=== PATIENT | female | born 1960 | race American Indian/Alaskan Native ===

== ENCOUNTER 2020-11-04 09:22 | Outpatient (CLI) | payer BC ==
--- NOTE | 2020-11-04 13:10 | Fluoroscopy Report ---
Barium swallow Indication: FUNCTIONAL DYSPEPSIA. Technique: Single and double contrast barium technique utilized to evaluate the esophagus. Findings: To begin the exam, swallowing was evaluated in the lateral position under direct fluorosco py. Swallowing was normal. No mucosal irregularity, mass, mass effect, or critical stenosis. There were no abnormal tertiary c ontractions as seen with dysmotility. No gastroesophageal reflux. Impression: Unremarkable exam. Fluoroscopic time: 0.5 minutes Number of fluoroscopic images: 11 Signer Name: Seth Joseph MD Signed: 11/04/2020 1:05 PM Workstation Name: [id number]
--- NOTE | 2020-11-05 10:38 | Electrocardiograph Report ---
[facility] Test Date: 2020-11-04 Test Time: 10:58:26 Pat Name: CEDRICK HOPKINS Department: Room: Gender: F Gas B[employer]: YANIQUE : 1960 Requested By: ANDREZ EMANUEL Order Number: [id number] Reading MD: Brandin Quan Measurements Intervals Pharr Rate: 60 P: 27 NM: 166 QRS: -11 QRSD: 92 T: 48 QT: 463 QTc: 463 Interpretive Statements Sinus rhythm No previous ECG available for comparison Electronically Signed On 11-05-2020 10:37:54 EDT by Brandin Quan
--- NOTE | 2020-11-05 10:50 | Treadmill Report ---
[facility] Test Date: 2020-11-04 Test Time: 10:32:45 Pat Name: CEDRICK HOPKINS Department: Room: Gender: F Planning Aide: Svetlana Nichols : 1960 Requested By: ANDREZ EMANUEL Order Number: [id number] Reading MD: Spencer Pineda Interpretive Statements Baseline EKG showed sinus rhythm within normal limits. Patient exercised for 7 minutes 45 seconds on standard Benny protocol. Attained a heart rate of 144 bpm which is 92% of predicted maximal heart rate. Test was stopped because of fatigue. No EKG changes to suggest ischemia. Systolic hypertension noted with peak blood pressure of 203/66 mmHg. Occasional to frequent PVCs noted during exercise. Final impression: Good exercise tolerance. No chest pain to suggest angina. No evidence of ischemia and EKG. Systolic hypertension with exercise. Occasional to frequent PVCs during stress, which improved during recovery. Overall this is a low risk stress EKG test. Electronically Signed On 11-05-2020 10:49:53 EDT by Spencer Pineda
== END 2020-11-04 09:23 | disposition home or self-care (01) ==
LOC: CARD 09:22
PROVIDERS: ATTEND Surgery
DX: K30 Functional dyspepsia (principal); E66.01 Morbid (severe) obesity due to excess calories
CPT/HCPCS: 74220; 93005; 93017

== ENCOUNTER 2020-11-26 06:54 | Day surgery (SDC) | payer BC ==
[2020-11-26] MEDS ORDERED: SODIUM CHLORIDE 0.9% 1000 ML 1,000 ML IV SCH (07:00)
--- NOTE | 2020-11-26 07:59 | Anesthesia Day of Surgery ---
Anesthesia Day of Surgery - Day of Surgery Patient Examined: Yes Patient H&P Reviewed: Yes Patient is NPO: Yes
--- NOTE | 2020-11-26 08:01 | Anesthesia Consultation ---
Anesthesia Consult and Med Hx Date of service: 11/26/20 - Airway Anesthetic Teeth Evaluation: Good ROM Head & Neck: Adequate Mental/Hyoid Distance: Adequate Mallampati Class: Class II Intubation Access Assessment: Good - Pre-Operative Health Status ASA Pre-Surgery Classification: ASA3 Proposed Anesthetic Plan: MAC - Gastrointestinal Hx Gastroesophageal Reflux Disease: Yes - Endocrine Hx Non-Insulin Dependent Diabetes: Yes Hx Hypothyroidism: Yes - Other Systems Hx Obesity: Yes
[2020-11-26] MEDS ORDERED: propofoL 200 MG/20 ML VIAL IV ONE ×2 (08:35)
--- NOTE | 2020-11-26 08:36 | Operative Report ---
Operative Report Operative Report: DATE: 11/26/2020 SURGERY: Upper endoscopy. SURGEON: Codie Coe M.D. PROCEDURE: EGD with biopsy PRE OP DX: morbid obesity, GERD POST OP DX: morbid obesity, GERD TYPE OF ANESTHESIA: MAC. ESTIMATED BLOOD LOSS: None. COMPLICATIONS: None. SPECIMENS REMOVED: antral biopsy FINDINGS: 1. Small hiatal hernia. 2. Otherwise, normal esophagus, stomach and first portion of duodenum. INDICATIONS:INDICATION FOR PROCEDURE: Patient is a 60-year-old female with a long history of morbid obesity. She is planned to have a weight loss procedure and is here for preoperative planning EGD. PROCEDURE DETAILS: After consent was reviewed, patient was taken back to the operating room where patient was placed in the left lateral decubitus position and a bite block was placed in the mouth. After a time-out was called, MAC anesthesia was initiated. I then passed the endoscope into her oropharynx, into her esophagus, visualized the entire esophagus, which was all within normal limits. Z-line was noted to about 38cm from incisors. I then visualized the stomach and the first portion of the duodenum and there were no abnormalities I could clearly visualize except for antral gastritis. A cold forceps biopsy of the antrum was taken and will be sent to pathology to evaluate for H.pylori. I then retroflexed the scope in the stomach and visualized the hiatus and I could see a small hiatal hernia. I then desufflated the stomach and removed the endoscope. Patient tolerated procedure well and was transferred to recovery room in good and stable condition.
--- NOTE | 2020-11-26 08:38 | Discharge Summary ---
Providers - Providers Date of Admission: 11/26/2020 Date of discharge: 11/26/20 Attending physician: ANDREZ EMANUEL MD Primary care physician: KARINA BARLOW Hospitalization Reason for admission: EGD with bx Condition: Good Procedures: EGD w/ biopsy Hospital course: Pt presented for a pre-op EGD as part of planning for up coming bariatric surgery. Procedure was uneventful and pt recovered well and was discharged to home. Disposition: DC-01 TO HOME OR SELFCARE Final Discharge Diagnosis (Prints w/discharge instructions): GERD, morbid obesity Core Measure Documentation - Palliative Care Palliative Care/ Comfort Measures: Not Applicable - Core Measures Any of the following diagnoses?: none Exam - Physical Exam Narrative exam: unchanged from pre-op Plan Activity: advance as tolerated Diet: low carbohydrate Follow up with: KARINA BARLOW MD [Primary Care Provider] - 7 Days
[2020-11-26 09:59] VITALS: BP 135/78
--- NOTE | 2020-11-26 19:27 | Post Anesthesia Evaluation ---
- Post Anesthesia Evaluation Patient Participated: Yes Airway Patent: Yes Stable Respiratory Function: Yes Nausea/Vomiting: No Temp > 96.8F: Yes Pain Manageable: Yes Adequeate Hydration: Yes Anesthesia Complications: No Block Receding Appropriately: Not Applicable Patient on Ventilator: No
== END 2020-11-26 06:55 | disposition home or self-care (01) ==
LOC: GIO 06:54
PROVIDERS: ATTEND Surgery
DX: K21.9 Gastro-esophageal reflux disease without esophagitis (principal); E66.01 Morbid (severe) obesity due to excess calories; K44.9 Diaphragmatic hernia without obstruction or gangrene; K29.50 Unspecified chronic gastritis without bleeding; B96.81 Helicobacter pylori [H. pylori] as the cause of diseases classified elsewhere; E11.9 Type 2 diabetes mellitus without complications; E03.9 Hypothyroidism, unspecified; Z68.39 Body mass index [BMI] 39.0-39.9, adult; Z79.899 Other long term (current) drug therapy; Z79.84 Long term (current) use of oral hypoglycemic drugs
CPT/HCPCS: 43239; 82962; 88305; 88342; J2704; J7030

== ENCOUNTER → 2021-01-01 | Outpatient (CLI) | payer BC | END | disposition home or self-care (01) | LOC: SLR 11:00 | PROVIDERS: ATTEND Surgery | DX: G47.30 Sleep apnea, unspecified (principal) | CPT/HCPCS: G0399 ==